=== PATIENT | male | born 1980 | race Caucasian/White ===

== ENCOUNTER 2024-08-11 07:40 | Day surgery (SDC) | payer MEDICAID, SELFPAY ==
[2024-08-10 10:00] VITALS: BMI 30.5
[2024-08-10 11:06] LABS: Basophils # (Auto) 0.1 Thou/mm3 (0.0-0.2); Basophils % (Auto) 1 % (0-2.5); Eosinophils # (Auto) 0.4 Thou/mm3 (0.0-0.5); Eosinophils % (Auto) 5 % (0-10); Hematocrit 39.2 % (41.0-53.0); Hemoglobin 13.3 g/dL (13.5-16.0); Immature Granulocytes % (Auto) 0 % (0-0); Immature Granulocytes Auto 0.04 Thou/mm3 (0.00-0.00); Lymphocytes # (Auto) 3.6 Thou/mm3 (1.0-4.8); Lymphocytes % (Auto) 40 % (10-50); Mean Corpuscular HGB Conc 33.9 g/dl (31.0-37.0); Mean Corpuscular Hemoglobin 29.6 pg (25.0-35.0); Mean Corpuscular Volume 87 fL (80-100); Monocytes # (Auto) 0.9 Thou/mm3 (0.0-0.8); Monocytes % (Auto) 10 % (0-12); Neutrophils % (Auto) 45 % (37-80); Nucleated Red Blood Cell % 0 /100 WBC (0); Platelet Count 300 Thou/mm3 (140-440); RDW Standard Deviation 39.8 fL (35.1-43.9); Red Blood Count 4.49 Miln/mm3 (4.50-5.90)
[2024-08-10 11:12] LABS: Alanine Aminotransferase 23 U/L (10-49); Albumin, Serum 4.8 gm/dL (3.5-5.0); Albumin/Globulin Ratio 2.4 (1.2-2.2); Alkaline Phosphatase 62 U/L (46-116); Anion Gap 2 (7-16); Aspartate Amino Transferase 25 U/L (0-34); BUN/Creatinine Ratio 7 Ratio (12-20); Bilirubin,Total 1.1 mg/dL (0.3-1.2); Blood Urea Nitrogen 8 mg/dL (9-23); Calcium 9.5 mg/dL (8.3-10.6); Calcium (Corrected) 9.5 mg/dL (8.5-10.1); Carbon Dioxide 29.6 mMol/L (20.0-31.0); Chloride 105 mMol/L (98-107); Creatinine (Component) 1.1 mg/dL (0.6-1.3); Estimated Creatinine Clearance 92.5 mL/min (>60); Glucose 103 mg/dL (74-106); Osmolality,Calculated 272 (275-295); Potassium 4.4 mMol/L (3.4-5.1); Sodium 137 mMol/L (136-145); Total Protein 6.8 gm/dL (5.7-8.2); eGFR > 60 See Note
[2024-08-10 11:13] LABS: Partial Thromboplastin Time 26.6 Seconds (22.0-36.0); Prothrombin Time 10.8 Seconds (9.0-12.2)
[2024-08-11] VITALS (8 sets, daily range): BP systolic 134–155; BP diastolic 75–85; PULSE 55–104; RESP 15–20; TEMP 36.4–36.7; O2SAT 94–100; BMI 30.2
--- NOTE | 2024-08-11 08:36 | SUR.PREOP ---
Patient expressed gratitude for prayer before their procedure.
[2024-08-11] MEDS: ALBUTEROL RT 2.5 MG/3 ML NEBU INH (10:00)
--- NOTE | 2024-08-11 12:15 | SUR.PHASEI ---
1215: Pt. AAOx4, vitals stable, breathing unlabored, no complaint of pain or nausea, dressing to groin area has a scant amount of blood, report received from Toribio MCKEON and MD Garcia.
--- NOTE | 2024-08-11 12:46 | PD.SUROPNT ---
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 The large condyloma over the perianal region was left in place for a second setting. Procedure Description After the patient was brought to the operating room LMA anesthesia was given. 2 g of Ancef was given. Timeout was performed. Then the genital area was washed with Betadine solution and draped in a sterile manner. Then I started removing this multiple areas of condyloma all over the genital area and it occupied the area for at least about 10 cm. I excised this condyloma using 15 blade knife and then cauterized immediately to control the bleeding. This was extending to the root of the penile skin as well as on the skin. There were all removed cauterized with fine cautery using the needlepoint. The large areas of the skin underneath the penis was about 10 cm in length and this was closed with running 5-0 nylon stitches. Another area in the suprapubic region and above the penis was closed with interrupted 4-0 nylon stitches. Extensive washing was applied with saline solution and I applied Bactroban ointment and fluffs and underwear to hold it in place. Patient tolerated procedure well. Anesthesia other (General LMA) Pathology / specimen Other (Excised condylomas) Pathology comment: Excised condylomas IVF Infused 700 Estimated Blood Loss 50 Surgeon Kimberly Mejia MD Surgical Staff Operation Date: 08/11/24 10:00 Case Staff Anesthesiologist: Wander Garcia
--- NOTE | 2024-08-11 13:10 | SUR.PHASEII ---
1310: Pt. AAOx4, vitals stable, breathing unlabored, no complaint of pain or nausea, dressing to groin CDI, no active bleed noted, pt. tolerated sips of water well, pt. ambulated to wheelchair with steady gait and no assist, no complications. Gave discharge instructions to the pt. and his ride, both verbalized understanding and had no further questions. Pt. left with all presonal belongings.
== END 2024-08-11 13:10 | disposition home or self-care (01) ==
PROVIDERS: PCP Family Medicine; Referring Provider Surgery; Visit Provider Surgery
PROC: 0HB9XZZ Excision of Perineum Skin, External Approach (ICD-10-PCS; CPT 11406; principal; 2024-08-11 09:45)
DX: A63.0 Anogenital (venereal) warts (principal); F31.9 Bipolar disorder, unspecified; G25.81 Restless legs syndrome; E78.2 Mixed hyperlipidemia; R73.03 Prediabetes
CPT/HCPCS: 11406 ×2; 36415; 80053; 85025; 85610; 85730; A4217; A4649; J0131; J0461; J0690; J1100; J1171; J1885; J2250; J2405; J2704; J3010; A9270

== ENCOUNTER 2024-12-21 08:04 | Outpatient (RCR) | payer MEDICAID, SELFPAY | END 2024-12-22 23:59 | disposition home or self-care (01) | LOC: SCTC 08:04 | PROVIDERS: PCP Family Medicine; Referring Provider Family Medicine; Visit Provider Nurse Practitioner Family | DX: D72.828 Other elevated white blood cell count (principal); R59.0 Localized enlarged lymph nodes | CPT/HCPCS: 99213; G0463 ==

== ENCOUNTER → 2025-02-02 | Outpatient (CLI) | payer MEDICAID, SELFPAY ==
--- NOTE | 2025-02-02 | XR_ITS ---
EXAMINATION: Ultrasound soft tissue extremity right axilla Date and time: February 02, 2025, 1524 hours INDICATIONS: Right axillary swelling beginning 4 months ago. FINDINGS: Multiple axillary lymph nodes without architectural distortion, the largest 18 x 13 mm IMPRESSION: BI-RADS Category 2: Benign findings
--- NOTE | 2025-02-02 15:00 | XR_ITS ---
Examination: CT chest with intravenous contrast CT chest without intravenous contrast 2-D reconstructions Date and time of exam: February 02, 2025, 1603 hours, comparison December 26, 2021 INDICATIONS: Leukocytosis, intermittent swelling of the right side of the neck and right axilla several months CTDI:vol (mGy) 43.9 DLP: (mGycm) 1678 Technique: Multiple axial sections of the thorax have been obtained. 3 mm slice thickness, from the hemidiaphragms to above the apices of the lungs. Mediastinal and lung density settings have been obtained. Intravenous contrast administered 60 cc Isovue-370. Noncontrast images have also been obtained. 2-D sagittal coronal images obtained. Low dose protocols were performed. One or more of the following dose reduction techniques were used; automated exposure control, adjustment of the mA and/or KV according to patient size, use of iterative reconstruction technique. Findings: No thoracic aortic aneurysmal dilatation or dissection No pulmonary artery emboli on this non CTA study No paratracheal tracheobronchial or bronchopulmonary adenopathy No axillary lymphadenopathy 3 mm pulmonary nodule left lower lobe image 207 No pneumonia or pulmonary edema No visualized liver or splenic lesion No gallstones No pancreatic or adrenal mass No hydronephrosis IMPRESSION: No mediastinal lymphadenopathy, no axillary lymphadenopathy 3 mm pulmonary nodule posterior left lung, recommend 6-month follow-up CT chest without contrast No pneumonia or pulmonary edema
--- NOTE | 2025-02-02 15:00 | XR_ITS ---
Examination: CT soft tissue neck, without contrast. CT soft tissue neck with intravenous contrast 2-D sagittal reconstructions. 2-D coronal reconstructions. 3-D reconstructions. Date and time of exam: February 02, 2025, 0403 hours INDICATIONS: Intermittent neck swelling several months, leukocytosis CTDI: vol (mGy): 24.3 DLP: (mGycm): 606 Technique: Multiple 1.25 mm axial sections of the soft tissue neck pre and post intravenous administration 60 cc Isovue-370 have been obtained. 2-D sagittal and coronal reconstructions have been obtained. 3-D reconstructions have been obtained. Low dose protocols were performed. One or more of the following dose reduction techniques were used; automated exposure control, adjustment of the mA and/or KV according to patient size, use of iterative reconstruction technique. Findings: Maxillary antra are clear Symmetrical nasopharynx oropharynx No pathologic cervical lymphadenopathy Symmetrical submandibular glands Thyroid lobes exhibits symmetry The larynx appears normal Normal epiglottis Mild cervical spondylosis Lung apices clear IMPRESSION: No soft tissue neck mass No pathologic cervical lymphadenopathy Normal larynx Normal epiglottis
== END | disposition home or self-care (01) ==
PROVIDERS: PCP Family Medicine; Referring Provider Nurse Practitioner Family; Visit Provider Nurse Practitioner Family
DX: R91.1 Solitary pulmonary nodule (principal); R22.1 Localized swelling, mass and lump, neck; D72.828 Other elevated white blood cell count
CPT/HCPCS: 70492; 71270; 76882; A4649; Q9967